=== PATIENT | female | born 1960 | race Caucasian/White ===

== ENCOUNTER → 2020-09-28 | Outpatient (CLI) | payer MEDICAID ==
[~2020-09-28] MED LIST: ASPI1TAB31 PO; LISI-167 PO; NAPR-685 PO; OMNIPAQUE 350 MG/ML, 75ML BOTTLE ONE; THYROID PO; TIZA2CAP PO
== END | disposition home or self-care (01) ==
LOC: CFH 14:05
PROVIDERS: ATTEND Registered Nurse General Practice
DX: J43.2 Centrilobular emphysema (principal); M43.26 Fusion of spine, lumbar region; M51.34 Other intervertebral disc degeneration, thoracic region; M85.88 Other specified disorders of bone density and structure, other site; F17.200 Nicotine dependence, unspecified, uncomplicated; R05 Cough
CPT/HCPCS: 71260; 82565; Q9967